=== PATIENT | male | born 1940 | race Caucasian/White ===

== ENCOUNTER 2016-04-24 05:28 | Inpatient (IN) | payer OTHER, MEDICARE ==
[2016-04-24] MEDS ORDERED: LIDOCAINE 1% 5 ML SDV ONE (05:59)
[2016-04-24] MEDS ORDERED: LIDOCAINE 1% 5 ML SDV ID PRN (06:23)
[2016-04-24] MEDS ORDERED: LR 1,000 ML IV ONE (06:23)
[2016-04-24 06:30] LABS: % IMMATURE GRANULYOCYTES 0.5 % (0.0-1.1); ABSOLUTE IMMATURE GRANULOCYTES 0.03 10^3/uL (0.00-0.10); ADD DIFF? NO; ADD MORPH? NO; ADD SCAN? NO; ATYPICAL LYMPHOCYTE FLAG 0 (0-99); FRAGMENT RBC FLAG 0 (0-99); HEMATOCRIT 46.4 % (40.0-51.0); HEMOGLOBIN 16.5 g/dL (13.7-17.5); LEFT SHIFT FLG 0 (0-99); LIPEMIA HEMOLYSIS FLAG 90 (0-99); MEAN CELL HEMOGLOBIN 31.5 pg (27.9-34.1); MEAN CELL HEMOGLOBIN CONCENTR. 35.6 g/dL (32.4-36.7); MEAN CELL VOLUME 88.7 fL (81.5-99.8); MEAN PLATELET VOLUME 10.2 fL (8.7-11.7); PLATELET CLUMPS FLAG 0 (0-99); PLATELET COUNT 257 10^3/uL (150-400); RED BLOOD CELL COUNT 5.23 10^6/uL (4.40-6.38); RED CELL DISTRIBUTION WIDTH 12.7 % (11.5-15.2)
[2016-04-24 06:34] LABS: INR 1.03 (0.83-1.16); PROTIME(PATIENT) 13.4 SEC (12.0-15.0)
[2016-04-24 06:35] LABS: APTT 25.1 SEC (23.0-38.0)
[2016-04-24 06:41] LABS: ANION GAP 10 mEq/L (8-16); CALCIUM 9.7 mg/dL (8.5-10.4); CARBON DIOXIDE 28 mEq/l (22-31); CHLORIDE 104 mEq/L (97-110); GLOMERULAR FILTRATION RATE > 60; GLUCOSE 108 mg/dL (70-100); POTASSIUM 4.4 mEq/L (3.5-5.2); SODIUM 142 mEq/L (134-144)
[2016-04-24] MEDS ORDERED: CEFAZOLIN 2 GM/DEXTROSE/100 ML BAG IV ONE (07:12)
[2016-04-24] MEDS ORDERED: BUPIVACAINE 0.5% 30 ML SDV ONE (07:33)
[2016-04-24] MEDS ORDERED: THROMBIN (RECOMBINANT) 20,000 UNIT VIAL TP ONE (07:33)
[2016-04-24] MEDS ORDERED: SKIN ADHESIVE (DERMABOND) 1 EACH TP ONE (07:34)
[2016-04-24] MEDS ORDERED: fentaNYL 250 MCG/5 ML INJ ONE (07:45)
[2016-04-24] MEDS ORDERED: PROPOFOL 200 MG/20 ML VIAL ONE (07:45)
[2016-04-24] MEDS ORDERED: DEXAMETHASONE 4 MG/ML VIAL ONE ×2 (07:46→09:26)
[2016-04-24] MEDS ORDERED: ONDANSETRON 4 MG/2 ML VIAL ONE (07:47)
[2016-04-24] MEDS ORDERED: ROCURONIUM 50 MG/5 ML VIAL ONE ×2 (07:47→10:01)
[2016-04-24] MEDS: ceFAZolin 2 GM/DEXTROSE 100 ML IV ONE ×2 (08:15→13:55)
--- NOTE | 2016-04-24 08:52 | DX ---
Single Frontal Chest April 24, 2016, 0734 Hours Clinical Indication: Preoperative examination. Comparison: May 23, 2013. Finding: There has been interval removal of the port catheter. Mild cardiomegaly is present. 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 The aorta is mildly tortuous but nonaneurysmal. Small h iatal hernia is present. Some linear scarring at the left base is unchanged. Impressions 1. Stable cardiomegaly. 2. Unchanged left basilar linear scarring.
[2016-04-24] MEDS ORDERED: epHEDrine SULFATE 10 MG/ML SYR ONE ×2 (09:11)
[2016-04-24] MEDS ORDERED: CALCIUM CHLORIDE 1 GM/10 ML INJ ONE ×2 (09:23)
[2016-04-24] MEDS ORDERED: IOPAMIDOL (ISOVUE-300) 100 ML BTL IV ONE ×2 (10:20→10:33)
[2016-04-24] MEDS ORDERED: HEPARIN 10,000 UNIT/10 ML MDV ONE ×2 (10:33→10:37)
[2016-04-24] MEDS ORDERED: HYDROmorphONE/DILAUDID 2 MG/ML SYR ONE (10:35)
[2016-04-24] MEDS ORDERED: SUGAMMADEX SODIUM 200 MG/2 ML VIAL IVP ONE (10:59)
[2016-04-24] MEDS ORDERED: PROTAMINE SULFATE 50 MG/5 ML VIAL IVP ONE (11:22)
[2016-04-24] MEDS ORDERED: LORazepam 0.5 MG TAB PO PRN (11:38)
[2016-04-24] MEDS ORDERED: NS 1,000 ML IV SCH (11:45)
--- NOTE | 2016-04-24 18:15 | IR ---
Abdominal aortogram Endovascular abdominal aortic aneurysm repair, bifurcated device Placement of extension limb, initial vessel Placement of extension limb, additional vessel Diagnostic angiogram, SENTHIL and right lumbar artery Coil embolization, SENTHIL and right lumbar artery Indication: Enlarged Abdominal aortic aneurysm. Please see prior CT scan for detailed description. Prophylactic Antibiotic: Cefazolin was ordered and administered for antimicrobial prophylaxis. Discontinuation of Prophylactic Antibiotic: Prophylactic antibiotic was given within 4 hours prior t o incision. There was an order to discontinue the antibiotic within 24 hours of procedure end time. VTE Prophylaxis: There is an order for VTE prophylaxis to be given within 24 hours after procedure e nd time. Consent: Obtained in detail in consultation with the patient. Please see consult note for details. Interventional Radiologists: Dr. Darlene Granados Surgeon: Dr. Ismael Ospina. Sedation: General anesthesia Technique: This is a joint procedure with Dr. Ismael Ospina, who was present during the entire proced ure. Bilateral femoral cutdowns were performed by Dr. Ismael Ospina. Please see that report for det ails. The left common femoral artery was punctured under direct visualization by a singlewall needle. Usin g Kumpe catheter and Glidewire, access to the infrarenal abdominal aorta was obtained. 6-Frisian shor t vascular sheath was advanced. Multimarker pigtail catheter was then positioned into the abdominal aorta through this sheath. Aortogram was performed. The right common femoral artery was punctured under direct visualization. 035 wire is advanced, follo wed by 6-Frisian sheath. Kumpe catheter is advanced, followed by Lunderquist wire. Sos Omni select catheter is advanced into abdominal aorta over Glidewire, and formed. A steep oblique aortogram was performed, showing origin of the SENTHIL as well as the posterior right lumbar artery. The SENTHIL is first superselectively selected by the soft catheter. Angiogram shows a satisfactory place ment of this catheter in the SENTHIL. High flow Renegade microcatheter is advanced over fathom microwire through the base catheter into dis ute main trunk of the SENTHIL. Coil embolization is performed using first a 3 mm standard coils, followed by a 4 mm Zachery coils. Postembolization angiogram performed through the base catheter shows lack of antegrade flow through the SENTHIL. Next, catheter is turned posterior, and superselectively positioned into the right posterior lumbar a rtery. Again a, diagnostic arteriogram performed there shows a satisfactory positioning of the cathet er in the lumbar artery. Microcatheter and microwire combination are again advanced through the base catheter into the distal main portion of this lumbar artery, and coil embolization was performed usin g 3 mm Zachery coils. Postembolization arteriogram shows lack of antegrade flow through the lumbar art rodriguez. The main body of the graft, Endurant IIs [id number], was fluoroscoped, with orientation of the cont ralimb determined. This graft was then loaded onto the Lunderquist wire through the right side, into the infrarenal aorta. Pigtail catheter is advanced up on the left side. A cone down magnified aotogram was performed at the renal level. Renal arteries were marked on the screen. The main body of the graft was positioned u nder roadmap technique, and subsequently deployed until the contragate is exposed. The left -sided pigtail catheter was then straightened using a Lunderquist wire, and exchanged for a Kumpe catheter, which was used to access the contragate over a Glidewire. Once intragraft access was obtained, Kumpe catheter was then exchanged for the pigtail catheter, which was then spun within the body of the stent graft to make sure that intragraft access was obtained. Retrograde sheath arteriogr am was performed, identifying location of the left internal iliac artery, and length of the contralim b was determined. The pigtail catheter was then removed over Lunderquist wire. The contralimb the, Endurant II [id number], was loaded and deployed, overlapping the main body of the graft by the amount recommended for this stent-graft. At this point, the remainder of the main body of the stent-graft was deployed. Extension if the limb , Endurant II [id number], was loaded, and deployed once the internal iliac artery is marked on the screen. Tack-down angioplasty was performed at both the attachment site as well at the distal landing zones u sing a Reliant balloon. Marker pigtail catheter was advanced up the right . Final aortogram was perf ormed. 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 No evidence for kink or typ e I endoleak. Bilateral femoral cutdowns were closed by Dr. Ismael Ospina. Patient was subsequently extubated. No immediate complications. Fluoroscopy: 19.9 min Exposure: 22 Total dose: 997.5 mGy Contrast: 200 mL of Isovue-300. EBL: 100 mL Impression: 1. Coil embolization of SENTHIL and lumbar artery, for prevention of type II endoleak, given sizes of the se vessels. 2. Stent-graft repair of infrarenal abdominal aortic aneurysm using 3 piece -piece Endurant device, a s above.
--- NOTE | 2016-04-24 18:15 | IR ---
Abdominal aortogram Endovascular abdominal aortic aneurysm repair, bifurcated device Placement of extension limb, initial vessel Placement of extension limb, additional vessel Diagnostic angiogram, SENTHIL and right lumbar artery Coil embolization, SENTHIL and right lumbar artery Indication: Enlarged Abdominal aortic aneurysm. Please see prior CT scan for detailed description. Prophylactic Antibiotic: Cefazolin was ordered and administered for antimicrobial prophylaxis. Discontinuation of Prophylactic Antibiotic: Prophylactic antibiotic was given within 4 hours prior t o incision. There was an order to discontinue the antibiotic within 24 hours of procedure end time. VTE Prophylaxis: There is an order for VTE prophylaxis to be given within 24 hours after procedure e nd time. Consent: Obtained in detail in consultation with the patient. Please see consult note for details. Interventional Radiologists: Dr. Darlene Granados Surgeon: Dr. Ismael Ospina. Sedation: General anesthesia Technique: This is a joint procedure with Dr. Ismael Ospina, who was present during the entire proced ure. Bilateral femoral cutdowns were performed by Dr. Ismael Ospina. Please see that report for det ails. The left common femoral artery was punctured under direct visualization by a singlewall needle. Usin g Kumpe catheter and Glidewire, access to the infrarenal abdominal aorta was obtained. 6-Kazakh shor t vascular sheath was advanced. Multimarker pigtail catheter was then positioned into the abdominal aorta through this sheath. Aortogram was performed. The right common femoral artery was punctured under direct visualization. 035 wire is advanced, follo wed by 6-Kazakh sheath. Kumpe catheter is advanced, followed by Lunderquist wire. Sos Omni select catheter is advanced into abdominal aorta over Glidewire, and formed. A steep oblique aortogram was performed, showing origin of the SENTHIL as well as the posterior right lumbar artery. The SENTHIL is first superselectively selected by the soft catheter. Angiogram shows a satisfactory place ment of this catheter in the SENTHIL. High flow Renegade microcatheter is advanced over fathom microwire through the base catheter into dis ute main trunk of the SENTHIL. Coil embolization is performed using first a 3 mm standard coils, followed by a 4 mm Zachery coils. Postembolization angiogram performed through the base catheter shows lack of antegrade flow through the SENTHIL. Next, catheter is turned posterior, and superselectively positioned into the right posterior lumbar a rtery. Again a, diagnostic arteriogram performed there shows a satisfactory positioning of the cathet er in the lumbar artery. Microcatheter and microwire combination are again advanced through the base catheter into the distal main portion of this lumbar artery, and coil embolization was performed usin g 3 mm Zachery coils. Postembolization arteriogram shows lack of antegrade flow through the lumbar art rodriguez. The main body of the graft, Endurant IIs [id number], was fluoroscoped, with orientation of the cont ralimb determined. This graft was then loaded onto the Lunderquist wire through the right side, into the infrarenal aorta. Pigtail catheter is advanced up on the left side. A cone down magnified aotogram was performed at the renal level. Renal arteries were marked on the screen. The main body of the graft was positioned u nder roadmap technique, and subsequently deployed until the contragate is exposed. The left -sided pigtail catheter was then straightened using a Lunderquist wire, and exchanged for a Kumpe catheter, which was used to access the contragate over a Glidewire. Once intragraft access was obtained, Kumpe catheter was then exchanged for the pigtail catheter, which was then spun within the body of the stent graft to make sure that intragraft access was obtained. Retrograde sheath arteriogr am was performed, identifying location of the left internal iliac artery, and length of the contralim b was determined. The pigtail catheter was then removed over Lunderquist wire. The contralimb the, Endurant II [id number], was loaded and deployed, overlapping the main body of the graft by the amount recommended for this stent-graft. At this point, the remainder of the main body of the stent-graft was deployed. Extension if the limb , Endurant II [id number], was loaded, and deployed once the internal iliac artery is marked on the screen. Tack-down angioplasty was performed at both the attachment site as well at the distal landing zones u sing a Reliant balloon. Marker pigtail catheter was advanced up the right . Final aortogram was perf ormed. 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 No evidence for kink or typ e I endoleak. Bilateral femoral cutdowns were closed by Dr. Ismael Ospina. Patient was subsequently extubated. No immediate complications. Fluoroscopy: 19.9 min Exposure: 22 Total dose: 997.5 mGy Contrast: 200 mL of Isovue-300. EBL: 100 mL Impression: 1. Coil embolization of SENTHIL and lumbar artery, for prevention of type II endoleak, given sizes of the se vessels. 2. Stent-graft repair of infrarenal abdominal aortic aneurysm using 3 piece -piece Endurant device, a s above.
--- NOTE | 2016-04-24 18:15 | IR ---
Abdominal aortogram Endovascular abdominal aortic aneurysm repair, bifurcated device Placement of extension limb, initial vessel Placement of extension limb, additional vessel Diagnostic angiogram, SENTHIL and right lumbar artery Coil embolization, SENTHIL and right lumbar artery Indication: Enlarged Abdominal aortic aneurysm. Please see prior CT scan for detailed description. Prophylactic Antibiotic: Cefazolin was ordered and administered for antimicrobial prophylaxis. Discontinuation of Prophylactic Antibiotic: Prophylactic antibiotic was given within 4 hours prior t o incision. There was an order to discontinue the antibiotic within 24 hours of procedure end time. VTE Prophylaxis: There is an order for VTE prophylaxis to be given within 24 hours after procedure e nd time. Consent: Obtained in detail in consultation with the patient. Please see consult note for details. Interventional Radiologists: Dr. Darlene Granados Surgeon: Dr. Ismael Ospina. Sedation: General anesthesia Technique: This is a joint procedure with Dr. Ismael Ospina, who was present during the entire proced ure. Bilateral femoral cutdowns were performed by Dr. Ismael Ospina. Please see that report for det ails. The left common femoral artery was punctured under direct visualization by a singlewall needle. Usin g Kumpe catheter and Glidewire, access to the infrarenal abdominal aorta was obtained. 6-Amharic shor t vascular sheath was advanced. Multimarker pigtail catheter was then positioned into the abdominal aorta through this sheath. Aortogram was performed. The right common femoral artery was punctured under direct visualization. 035 wire is advanced, follo wed by 6-Amharic sheath. Kumpe catheter is advanced, followed by Lunderquist wire. Sos Omni select catheter is advanced into abdominal aorta over Glidewire, and formed. A steep oblique aortogram was performed, showing origin of the SENTHIL as well as the posterior right lumbar artery. The SENTHIL is first superselectively selected by the soft catheter. Angiogram shows a satisfactory place ment of this catheter in the SENTHIL. High flow Renegade microcatheter is advanced over fathom microwire through the base catheter into dis ute main trunk of the SENTHIL. Coil embolization is performed using first a 3 mm standard coils, followed by a 4 mm Zachery coils. Postembolization angiogram performed through the base catheter shows lack of antegrade flow through the SENTHIL. Next, catheter is turned posterior, and superselectively positioned into the right posterior lumbar a rtery. Again a, diagnostic arteriogram performed there shows a satisfactory positioning of the cathet er in the lumbar artery. Microcatheter and microwire combination are again advanced through the base catheter into the distal main portion of this lumbar artery, and coil embolization was performed usin g 3 mm Zachery coils. Postembolization arteriogram shows lack of antegrade flow through the lumbar art rodriguez. The main body of the graft, Endurant IIs [id number], was fluoroscoped, with orientation of the cont ralimb determined. This graft was then loaded onto the Lunderquist wire through the right side, into the infrarenal aorta. Pigtail catheter is advanced up on the left side. A cone down magnified aotogram was performed at the renal level. Renal arteries were marked on the screen. The main body of the graft was positioned u nder roadmap technique, and subsequently deployed until the contragate is exposed. The left -sided pigtail catheter was then straightened using a Lunderquist wire, and exchanged for a Kumpe catheter, which was used to access the contragate over a Glidewire. Once intragraft access was obtained, Kumpe catheter was then exchanged for the pigtail catheter, which was then spun within the body of the stent graft to make sure that intragraft access was obtained. Retrograde sheath arteriogr am was performed, identifying location of the left internal iliac artery, and length of the contralim b was determined. The pigtail catheter was then removed over Lunderquist wire. The contralimb the, Endurant II [id number], was loaded and deployed, overlapping the main body of the graft by the amount recommended for this stent-graft. At this point, the remainder of the main body of the stent-graft was deployed. Extension if the limb , Endurant II [id number], was loaded, and deployed once the internal iliac artery is marked on the screen. Tack-down angioplasty was performed at both the attachment site as well at the distal landing zones u sing a Reliant balloon. Marker pigtail catheter was advanced up the right . Final aortogram was perf ormed. 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 No evidence for kink or typ e I endoleak. Bilateral femoral cutdowns were closed by Dr. Ismael Ospina. Patient was subsequently extubated. No immediate complications. Fluoroscopy: 19.9 min Exposure: 22 Total dose: 997.5 mGy Contrast: 200 mL of Isovue-300. EBL: 100 mL Impression: 1. Coil embolization of SENTHIL and lumbar artery, for prevention of type II endoleak, given sizes of the se vessels. 2. Stent-graft repair of infrarenal abdominal aortic aneurysm using 3 piece -piece Endurant device, a s above.
--- NOTE | 2016-04-24 18:30 | SOAPPROG ---
SOAP Progress Note Assessment/Plan: Assessment: Post AAA endograft repair. Doing well. Plan: Bed rest tonight, may turn side to side. OOB in am . 04/24/16 18:29 Subjective: Awake. No complaints. Objective: Vital Signs Temp Pulse Resp BP Pulse Ox 36.4 C 92 18 138/67 H 99 04/24/16 17:00 04/24/16 18:00 04/24/16 18:00 04/24/16 18:00 04/24/16 18:00 Laboratory Results 04/24/16 06:15 04/24/16 06:15 04/23/16 04/24/16 04/25/16 05:59 05:59 05:59 Intake Total 4894 Output Total 3775 Balance 1119 PT 13.4 SEC (12.0-15.0) 04/24/16 06:15 INR 1.03 (0.83-1.16) 04/24/16 06:15 No significant hematoma either groin. RT dressing with some blood. Pulses normal. ICD10 Worksheet Patient Problems: Problems Problem Status Diagnosed Osteoarthritis of hip Acute
[2016-04-25] MEDS ORDERED: NON-FORMULARY NEW DRUG (Omeprazole [Prilosec 20 Mg] 20 MG) PO PRN (08:13)
[2016-04-25] MEDS ORDERED: ACETAMINOPHEN 500 MG TAB PO PRN (08:14)
[2016-04-25] MEDS ORDERED: oxyCODONE IR 5 MG TAB PO PRN (08:16)
[2016-04-25] MEDS ORDERED: PANTOPRAZOLE SODIUM 40 MG TAB PO PRN (08:18)
[2016-04-25] MEDS: ATORVASTATIN CALCIUM 20 MG TAB PO SCH (09:33)
[2016-04-25] MEDS: ATENOLOL 25 MG TAB PO SCH (09:33)
[2016-04-25] MEDS: LEVOTHYROXINE 125 MCG TAB PO SCH (09:34)
[2016-04-25] MEDS ORDERED: LACTULOSE 20 GM/30 ML UDCUP PO PRN (10:06)
[2016-04-25] MEDS ORDERED: MAGNESIUM HYDROXIDE 30 ML UDCUP PO PRN (10:06)
[2016-04-25] MEDS ORDERED: POLYETHYLENE GLYCOL 3350 17 GM PKT PO PRN (10:06)
[2016-04-25] MEDS ORDERED: BISACODYL 10 MG SUPP PR PRN (10:06)
--- NOTE | 2016-04-25 10:06 | SOAPPROG ---
SOAP Progress Note Assessment/Plan: Assessment: Post AAA endograft repair. Doing well. Plan: Bed rest tonight, may turn side to side. OOB in am . 04/24/16 18:29 04/25/16 10:05 1. Step down or Med surg transfer 2. bowel regiment 3. OK to D/C tomorrow from IR standpoint. 4. IR will call patient re:6month follow up CTA. 04/25/16 10:05 Subjective: Sitting in chair. Has some groin pain, on LT radiates to knee. Worried about constipation on narcotics. Objective: Vital Signs Temp Pulse Resp BP Pulse Ox 36.7 C 78 16 105/55 L 93 04/25/16 08:00 04/25/16 09:34 04/25/16 09:34 04/25/16 09:34 04/25/16 09:34 Laboratory Results 04/24/16 06:15 04/24/16 06:15 04/24/16 04/25/16 04/26/16 05:59 05:59 05:59 Intake Total 5606 Output Total 4788 Balance 888 PT 13.4 SEC (12.0-15.0) 04/24/16 06:15 INR 1.03 (0.83-1.16) 04/24/16 06:15 No bleeding at groins. Pulses normal. ICD10 Worksheet Patient Problems: Problems Problem Status Diagnosed Osteoarthritis of hip Acute
[2016-04-25] MEDS ORDERED: NON-FORMULARY NEW DRUG (Simvastatin [Zocor 10 Mg] 10 MG) PO SCH (18:00)
[2016-04-25] MEDS ORDERED: PRAVASTATIN SODIUM 20 MG TAB PO SCH (18:00)
[2016-04-25] MEDS: SENNOSIDES/DOCUSATE SODIUM TAB PO SCH (20:18)
[2016-04-26] MEDS: LEVOTHYROXINE 125 MCG TAB PO SCH (05:22)
[2016-04-26] MEDS: SENNOSIDES/DOCUSATE SODIUM TAB PO SCH (07:52)
[2016-04-26 07:53] VITALS: BP 107/69
[2016-04-26] MEDS: ATORVASTATIN CALCIUM 20 MG TAB PO SCH (07:53)
[2016-04-26] MEDS: ATENOLOL 25 MG TAB PO SCH (07:53)
[2016-04-26 08:02] VITALS: PULSE 78; RESP 14; TEMP 97.8; O2SAT 92
--- NOTE | 2016-04-26 10:03 | SOAPPROG ---
SOAP Progress Note Assessment/Plan: Assessment: POD # 2 s/p evar. doing well. dc home return to see dr taylor in 10-14 days S: Pain controlled Incisions cdi Palpable pulses Plan: 04/26/16 10:02 Objective: Vital Signs Temp Pulse Resp BP Pulse Ox 36.6 C 78 14 107/69 92 04/26/16 07:59 04/26/16 07:59 04/26/16 07:59 04/26/16 07:59 04/26/16 07:59 Laboratory Results 04/24/16 06:15 04/24/16 06:15 04/25/16 04/26/16 04/27/16 05:59 05:59 05:59 Intake Total 5663 750 Output Total 4775 Balance 888 750 PT 13.4 SEC (12.0-15.0) 04/24/16 06:15 INR 1.03 (0.83-1.16) 04/24/16 06:15 ICD10 Worksheet Patient Problems: Problems Problem Status Diagnosed Osteoarthritis of hip Acute
== END 2016-04-26 11:03 | disposition home or self-care (01) | DRG 269 ==
LOC: F2N 05:28 → EDSTATUS 07:15 → F2N 13:45 → F3E 04-25 11:32
PROVIDERS: ADMIT Surgery; ATTEND Radiology Diagnostic Radiology
PROC: 04V03D6 (ICD-10-PCS; principal; 2016-04-24 07:15)
PROC: 03LP3DZ Occlusion of Right Vertebral Artery with Intraluminal Device, Percutaneous Approach (ICD-10-PCS; principal; 2016-04-24 07:15)
PROC: 03L Upper Arteries, Occlusion (ICD-10-PCS; principal; 2016-04-24 07:15)
DX: I71.4 Abdominal aortic aneurysm, without rupture (principal); I10 Essential (primary) hypertension; E03.9 Hypothyroidism, unspecified; K21.9 Gastro-esophageal reflux disease without esophagitis; J44.9 Chronic obstructive pulmonary disease, unspecified; Z85.038 Personal history of other malignant neoplasm of large intestine
CPT/HCPCS: C1725; C1769; C1894; J0171; J0690; J1100; J1170; J1644; J2405; J2704; J2720; J3010; Q9967

== ENCOUNTER 2016-05-09 10:23 | Emergency (ER) | payer OTHER, MEDICARE ==
[2016-05-09 10:35] VITALS: RESP 16
[2016-05-09 12:07] VITALS: O2SAT 93
--- NOTE | 2016-05-09 12:14 | US ---
Left Lower Extremity Deep Venous Duplex Doppler Ultrasound History: Left lower extremity leg pain and swelling. Technique: The left lower extremity deep venous system and veins of the proximal calf were interroga praveen with grayscale, color, and spectral Doppler imaging. Findings: The left common femoral, superficial femoral, popliteal, and veins of the calf normally co mpress on grayscale imaging. The deep venous system and veins of the proximal calf have normal flow a nd expected variability. The visualized greater saphenous vein compresses normally without thrombus. In the left inguinal region there is a hypoechoic collection compatible with seroma that measures 5 x 3.8 x 2.2 cm. Additionally, in the right inguinal region there is a similar-appearing seroma that me asures 4.8 x 3.6 x 1.9 cm.. Impression: 1. No deep venous thrombosis in the left lower extremity. 2. Bilateral inguinal seromas or resolving hematomas. These findings were discussed by telephone with Dr. Sabrina Foy at 1211hrs.
--- NOTE | 2016-05-09 12:17 | EDPHY ---
H & P Stated Complaint: CONCERNED ABOUT BLOOD CLOT IN LEFT LEG Time Seen by Provider: 05/09/16 10:38 HPI/ROS: CHIEF COMPLAINT: Pain in left calf HISTORY OF PRESENT ILLNESS: 75-year-old male 2 weeks status post endovascular surgery for an abdominal aortic aneurysm presents reporting episode of calf discomfort yesterday x2. Patient describes developing and discomfort on the medial aspect of his left calf. He notes that the leg was slightly swollen. He removed his stocking and elevated his foot. At one point he reports feeling a small lump. Discomfort with resolved on its own and then recurred later that evening. He has had no pain in the right lower extremity. No shortness of breath. No erythema. No fevers. No other complaints. No history of DVTs or PEs. He does report he has been less active than he thinks he should since his surgery. No fever, chills, chest pain, shortness of breath, palpitations, vomiting, diarrhea, urinary complaints, headache, lightheadedness. REVIEW OF SYSTEMS: Aside from elements discussed in the HPI, a comprehensive 10-point review of systems was reviewed and is negative. PAST MEDICAL HISTORY: Prostate cancer, abdominal aortic aneurysm repair, SOCIAL HISTORY: Here with his . Nonsmoker. VITAL SIGNS: see nurse's notes. GENERAL: Well-developed, well-nourished, in no acute distress. HEENT: Normal, no discharge or icterus, moist mucous membranes. Neck: supple, FROM. LUNGS: Clear to auscultation bilaterally, no wheezes, rhonchi or rales. CARDIAC: Regular rate and rhythm, no rubs, murmurs or gallops. ABDOMEN: Soft, nontender, nondistended, bowel sounds normal. BACK: No CVA tenderness. No vertebral tenderness. EXTREMITIES: Left lower extremity: No obvious swelling of the calf. No superficial thrombophlebitis noted. No cellulitis. No erythema. Nontender to palpation. Negative Homans sign. Dorsalis pedis and posterior tibial pulses are intact bilaterally. Sensation intact NEURO: Alert and oriented, grossly nonfocal. SKIN: Warm and dry, no rash. - Personal History Current Tetanus/Diphtheria Vaccine: Yes Tetanus Vaccine Date: 2007 - Medical/Surgical History Hx Asthma: No Hx Chronic Respiratory Disease: No Hx Diabetes: Yes Hx Cardiac Disease: No Hx Renal Disease: No Hx Cirrhosis: No Hx Alcoholism: No Hx HIV/AIDS: No Hx Splenectomy or Spleen Trauma: No Other PMH: HERNIA REPAIR JAN 2014, OSTEOARTHRITIS, COLON CANCER 2012, ENDOVASCULAR SURGERY [facility] 04/24/16 - Social History Smoking Status: Former smoker Constitutional: Initial Vital Signs Temperature (C) 36.4 C 05/09/16 10:32 Heart Rate 60 05/09/16 10:32 Respiratory Rate 16 05/09/16 10:32 Blood Pressure 135/73 H 05/09/16 10:32 O2 Sat (%) 94 05/09/16 10:32 O2 Delivery Mode Room Air Allergies/Adverse Reactions: No Known Allergies Allergy (Verified 05/09/16 10:36) Home Medications: Medication Instructions Recorded Simvastatin [Zocor 10 mg] 10 mg PO DAILY18 04/25/13 Omeprazole [Prilosec 20 mg] 20 mg PO DAILY PRN 03/29/14 Atenolol [Tenormin 25 mg (*)] 25 mg PO DAILY 04/16/16 Levothyroxine [Synthroid 125 mcg 125 mcg PO DAILY06 04/16/16 (*)] Atorvastatin Calcium [Lipitor 20 20 mg PO DAILY 04/24/16 mg (*)] Acetaminophen [Tylenol ES 500 mg 1,000 mg PO Q6HRS PRN #0 tab 04/26/16 (*)] Medical Decision Making - Diagnostics Imaging: Results: An ultrasound scan of the left lower extremity was obtained. The results of the study were reported to me: No DVT. The study was read by Dr. Turk. I viewed the images myself on the PACS system. I discussed the results of the study with the patient. ED Course/Re-evaluation: 75-year-old male presenting with left calf pain 2 weeks status post surgery. Ultrasound was negative. No signs of cellulitis. Differential Diagnosis: Differential diagnoses for the patient's symptom complex was considered including but not limited to superficial thrombophlebitis, DVT, muscle strain, cellulitis, venous stasis. Departure - Departure Disposition: Home, Routine, Self-Care Clinical Impression: Pain of left calf Condition: Good Instructions: Leg Pain (ED) Additional Instructions: There is no evidence of a blood clot in your leg. You may have superficial thrombophlebitis. If the pain or lumps recur, use warm compresses and take a small amount of Tylenol or ibuprofen. Please follow up with your primary care physician if you continue to have symptoms. Referrals: Kedar Pradhan MD [Primary Care Provider] - As per Instructions
[2016-05-09 12:43] VITALS: BP 103/73; PULSE 58; TEMP 97.3
== END 2016-05-09 12:43 | disposition home or self-care (01) ==
DX: M79.662 Pain in left lower leg (principal); E11.9 Type 2 diabetes mellitus without complications; Z85.46 Personal history of malignant neoplasm of prostate; Z85.038 Personal history of other malignant neoplasm of large intestine; Z87.891 Personal history of nicotine dependence

== ENCOUNTER → 2016-11-17 | Outpatient (CLI) | payer OTHER, MEDICARE ==
[~2016-11-17] MED LIST: IOPAMIDOL (ISOVUE 370) 100 ML BTL IV ONE
== END ==
LOC: FIMAGING 11:31
PROVIDERS: ATTEND Radiology Diagnostic Radiology
DX: I71.4 Abdominal aortic aneurysm, without rupture (principal); R93.8 Abnormal findings on diagnostic imaging of other specified body structures
CPT/HCPCS: 74174; Q9967

== ENCOUNTER → 2017-06-23 | Outpatient (CLI) | payer OTHER, MEDICARE | LOC: CIMAGING 11:06 | PROVIDERS: ATTEND Radiology Diagnostic Radiology | DX: I71.4 Abdominal aortic aneurysm, without rupture (principal); K57.30 Diverticulosis of large intestine without perforation or abscess without bleeding; K80.20 Calculus of gallbladder without cholecystitis without obstruction | CPT/HCPCS: 74174; Q9967 ==